=== PATIENT | female | born 1990 | race Two or more races ===

== ENCOUNTER 2023-08-14 13:41 | Emergency (ER) | payer MEDICAID ==
[~2023-08-14] VITALS: Ht 162.6 cm; Wt 70.0 kg
[2023-08-14 15:21] LABS: Urine Bacteria FEW /hpf (None Seen); Urine Blood Negative /uL (Negative); Urine Clarity Clear (Clear); Urine Color Colorless (Yellow); Urine Protein, UAD Negative (Negative); Urine Specific Gravity 1.004 (1.001-1.035); Urine Urobilinogen Normal (Negative); Urine WBC 1 /hpf (0 - 5); Urine pH 6.5 (5.0-8.0)
[2023-08-14 16:23] LABS: Basophils # (auto) 0.1 10 ^3/uL (0-0.2); Eosinophils # (auto) 0.1 10 ^3/uL (0-0.8); Eosinophils % (auto) 0.6 % (0.0-7.0); Hemoglobin 13.8 g/dL (12.2-16.2); Lymphocytes # (auto) 2.3 10 ^3/uL (0.4-5.4); Lymphocytes % (auto) 23.8 % (10.0-50.0); Mean Corpuscular Hemoglobin 31.1 pg (28.0-32.0); Mean Corpuscular Hgb Conc. 34.5 g/dL (32.0-36.0); Mean Corpuscular Volume 90.1 fL (80.0-100.0); Monocytes # (auto) 0.7 10 ^3/uL (0-1.3); Monocytes % (auto) 7.3 % (0.0-12.0); Neutrophils # (auto) 6.5 10 ^3/uL (1.6-8.6); Neutrophils % (auto) 67.3 % (37.0-80.0); Red Blood Cells 4.44 10^6/uL (4.0-5.20); Red Cell Distribution Width 13.6 % (11.8-14.3); White Blood Cell 9.6 10^3/uL (4.4-10.8)
[2023-08-14 16:31] LABS: Chloride 106 mmol/L (98-107); Potassium 3.4 mmol/L (3.5-5.1); Sodium 137 mmol/L (136-145)
[2023-08-14 16:32] LABS: Anion Gap 4 (5-15); Calcium 9.5 mg/dL (8.7-10.4); Carbon Dioxide 27 mmol/L (20-30)
[2023-08-14 16:37] LABS: BUN/Creatinine Ratio 18.5 (10.0-20.0); Blood Urea Nitrogen 10 mg/dL (9-23); Glucose 75 mg/dL (74-106)
[2023-08-14 16:56] VITALS: BP 111/72; PULSE 70; RESP 18; O2SAT 98
[2023-08-14] MEDS ORDERED: SODIUM CHLORIDE 0.9% 1,000 ML IV ONE (17:00)
[2023-08-14] MEDS ORDERED: ACETAMINOPHEN 500 MG TAB PO ONE (17:00)
[2023-08-14] MEDS ORDERED: diphenhdrAMINE HCL 50 MG/1 ML VL IV ONE (17:00)
[2023-08-14] MEDS ORDERED: ONDANSETRON HCL 4 MG/2 ML VIAL IV ONE (17:00)
[2023-08-14] MEDS ORDERED: DIPH50CA30 PO (18:19)
[2023-08-14] MEDS ORDERED: ZOFR4T PO (18:19)
[2023-08-14] MEDS ORDERED: ACET-1080 PO (18:19)
[2023-08-14 18:25] VITALS: TEMP 97.6
== END 2023-08-14 18:36 | disposition home or self-care (01) ==
LOC: ER 13:41
DX: O21.8 Other vomiting complicating pregnancy (principal); R10.2 Pelvic and perineal pain; E78.5 Hyperlipidemia, unspecified; F41.1 Generalized anxiety disorder; Z3A.01 Less than 8 weeks gestation of pregnancy
CPT/HCPCS: 36415; 76801; 80048; 81001; 81025; 84702; 85025; 96361; 96374; 96375; 99285; J1200; J2405; J7030

== ENCOUNTER 2023-10-08 00:07 | Emergency (ER) | payer MEDICAID ==
[~2023-10-08] VITALS: Ht 170.2 cm; Wt 62.3 kg
[~2023-10-08 00:07] MED LIST: ACET-1080 PO; DIPH50CA30 PO; ZOFR4T PO
[2023-10-08 00:15] VITALS: BP 107/70; PULSE 79; RESP 18; O2SAT 95
[2023-10-08 00:55] LABS: Basophils # (auto) 0.1 10 ^3/uL (0-0.2); Basophils % (auto) 0.8 % (0.0-2.0); Eosinophils # (auto) 0.1 10 ^3/uL (0-0.8); Eosinophils % (auto) 0.9 % (0.0-7.0); Hematocrit 37.4 % (36.0-46.0); Hemoglobin 12.5 g/dL (12.2-16.2); Lymphocytes # (auto) 3.2 10 ^3/uL (0.4-5.4); Lymphocytes % (auto) 27.2 % (10.0-50.0); Mean Corpuscular Hemoglobin 30.8 pg (28.0-32.0); Mean Corpuscular Hgb Conc. 33.5 g/dL (32.0-36.0); Monocytes # (auto) 0.8 10 ^3/uL (0-1.3); Monocytes % (auto) 6.6 % (0.0-12.0); Neutrophils # (auto) 7.6 10 ^3/uL (1.6-8.6); Neutrophils % (auto) 64.5 % (37.0-80.0); Red Blood Cells 4.07 10^6/uL (4.0-5.20); Red Cell Distribution Width 14.8 % (11.8-14.3); White Blood Cell 11.8 10^3/uL (4.4-10.8)
[2023-10-08 01:12] LABS: Chloride 106 mmol/L (98-107); Potassium 3.9 mmol/L (3.5-5.1); Sodium 137 mmol/L (136-145)
[2023-10-08 01:13] LABS: Anion Gap 10 (5-15); Carbon Dioxide 21 mmol/L (20-30)
[2023-10-08 01:14] LABS: Calcium 9.3 mg/dL (8.7-10.4)
[2023-10-08 01:18] LABS: BUN/Creatinine Ratio 14.6 (10.0-20.0); Blood Urea Nitrogen 7 mg/dL (9-23)
[2023-10-08 01:19] LABS: Blood Alcohol < 3.0 mg/dL (<10)
[2023-10-08 01:55] LABS: Glucose 105 mg/dL (74-106)
== END 2023-10-08 04:06 | disposition home or self-care (01) ==
LOC: ER 00:07 → EDBD 00:07 → ER 04:06
DX: O26.892 Other specified pregnancy related conditions, second trimester (principal); R10.2 Pelvic and perineal pain; F41.1 Generalized anxiety disorder; Z3A.14 14 weeks gestation of pregnancy
CPT/HCPCS: 36415; 80048; 80320; 84702; 85025